=== PATIENT | male | born 1985 | race Caucasian/White ===

== ENCOUNTER 2016-03-18 23:08 | Emergency (ER) | payer OTHER ==
[~2016-03-18] VITALS: Ht 177.8 cm; Wt 78.7 kg
[~2016-03-18 23:08] MED LIST: CLINDAMYCIN HC300 MG PO; ULTRAM50 MG PO
[2016-03-18 23:12] VITALS: BP 145/93
== END 2016-03-19 00:45 | disposition home or self-care (01) ==
LOC: EME 23:08
DX: T78.40XA Allergy, unspecified, initial encounter (principal)

== ENCOUNTER 2016-12-01 06:13 | Emergency (ER) | payer OTHER ==
[~2016-12-01] VITALS: Ht 177.8 cm; Wt 79.7 kg
[2016-12-01 09:27] VITALS: BP 162/95
== END 2016-12-01 09:24 | disposition home or self-care (01) ==
LOC: EME 06:13
DX: G43.909 Migraine, unspecified, not intractable, without status migrainosus (principal); Z88.0 Allergy status to penicillin; Z88.8 Allergy status to other drugs, medicaments and biological substances; F17.200 Nicotine dependence, unspecified, uncomplicated
CPT/HCPCS: 99281; 99284; J7120

== ENCOUNTER 2017-05-03 21:40 | Inpatient (IN) | payer OTHER ==
[~2017-05-03] VITALS: Ht 177.8 cm; Wt 77.6 kg
[2017-05-03 23:10] LABS: BASOPHIL (%) 0.3 % (0-1); BASOPHIL COUNT 0.1 K/uL (0-0.1); EOSINOPHIL (%) 0 % (0-5); HEMATOCRIT 39.4 % (38.0-50.0); HEMOGLOBIN 13.9 G/DL (12.5-16.6); IMMATURE GRANULOCYTE (%) 1.9 % (0.0-0.7); LYMPHOCYTE (%) 4.3 % (15-42); LYMPHOCYTE COUNT 1.1 K/uL (1.0-2.8); MCH 30.3 PG (29.0-34.0); MCHC 35.3 G/DL (30.0-36.0); MONOCYTE COUNT 1.6 K/uL (0-0.8); NEUTROPHIL (%) 87.5 % (45-76); NEUTROPHIL COUNT 22.7 K/uL (1.8-6.4); PLATELET COUNT 212 K/uL (156-360); RBC DIS.WIDTH-CV 13.1 % (11.8-14.6); RBC DIS.WIDTH-SD 40.7 % (39-53); RED BLOOD COUNT 4.58 M/uL (4.00-5.50)
[2017-05-03 23:21] LABS: ALBUMIN 4.6 g/dL (3.2-4.8); CHLORIDE 93 mEq/L (99-109); POTASSIUM 3.5 mEq/L (3.7-5.4); SODIUM 132 mEq/L (136-147)
[2017-05-03 23:23] LABS: GLUCOSE 112 mg/dL (70-99); TOTAL PROTEIN 8.4 g/dL (6.4-8.3)
[2017-05-03 23:27] LABS: ALKALINE PHOSPHATASE 64 IU/L (3-129); CREATININE 1.2 mg/dL (0.6-1.3); GFR ESTIMATE (CALCULATED) > 59 mL/min/ (58.99-99999)
[2017-05-03 23:28] LABS: UREA NITROGEN (BUN) 19 mg/dL (9-23)
[2017-05-03 23:29] LABS: AST (GOT) 53 IU/L (2-34)
[2017-05-03 23:30] LABS: ALT (GPT) 37 IU/L (3-49)
[2017-05-04 05:45] LABS: AMPHETAMINE NEGATIVE (500 ng/mL); BARBITURATES NEGATIVE (200 ng/mL); BENZODIAZEPINES NEGATIVE (150 ng/mL); BUPRENORPHINE PRESUMPTIVE POSITIVE (10 ng/mL); COCAINE PRESUMPTIVE POSITIVE (150 ng/mL); METHADONE NEGATIVE (200 ng/mL); METHAMPHETAMINE NEGATIVE (500 ng/mL); OPIATES (MORPHINE) NEGATIVE (100 ng/mL); OXYCODONE NEGATIVE (100 ng/mL); PHENCYCLIDINE NEGATIVE (25 ng/mL); PROPOXYPHENE NEGATIVE (300 ng/mL); THC CANNABINOIDS PRESUMPTIVE POSITIVE (50 ng/mL); TRICYCLIC ANTIDEPRESSANTS NEGATIVE (300 ng/mL)
[2017-05-04 06:29] LABS: HEMATOCRIT 35.2 % (38.0-50.0); HEMOGLOBIN 12.4 G/DL (12.5-16.6); MCH 30.5 PG (29.0-34.0); MCHC 35.2 G/DL (30.0-36.0); MCV 86.5 FL (86-99); PLATELET COUNT 187 K/uL (156-360); RBC DIS.WIDTH-CV 13.1 % (11.8-14.6); RBC DIS.WIDTH-SD 41.3 % (39-53); RED BLOOD COUNT 4.07 M/uL (4.00-5.50); WHITE BLOOD COUNT 29.1 K/uL (4.1-10.2)
[2017-05-04 07:05] LABS: ABS NEUTROPHIL COUNT 27.4; ANISOCYTOSIS 1+; BAND NEUTROPHILS 24.6 % (0-8.0); EOSINOPHIL ABS CT 0; LYMPHOCYTES 0.9 % (15.0-45.0); MACROCYTES 1+; METAMYELOCYTES 1.7 %; MICROCYTOSIS 1+; MONOCYTES 3.4 % (0-9.0); POLYCHROMASIA 1+; SEG.NEUTROPHILS 69.4 % (46.0-76.0)
[2017-05-04 07:09] VITALS: BP 112/58
[2017-05-04 09:26] LABS: CREATININE 0.9 MG/DL (0.6-1.3); GFR ESTIMATE (CALCULATED) > 59 mL/min/ (58.99-99999)
[2017-05-04] MEDS ORDERED: SUBOXONE 12 MG1 EACH SL (12:27)
[2017-05-04 14:07] LABS: CK-MB 2.1 ng/mL (0.0-4.9)
[2017-05-04 14:36] LABS: CKMB RELATIVE INDEX 1.2 (0.0-3.9); CREATINE KINASE 180 IU/L (1-294); TOTAL CK 180 IU/L (1-294)
[2017-05-04 17:21] VITALS: BP 94/53
[2017-05-04 19:57] VITALS: BP 122/60
[2017-05-04 23:11] VITALS: BP 116/76
[2017-05-05 07:07] LABS: HEMATOCRIT 32.4 % (38.0-50.0); HEMOGLOBIN 11.4 G/DL (12.5-16.6); MCH 30.2 PG (29.0-34.0); MCHC 35.2 G/DL (30.0-36.0); MCV 85.7 FL (86-99); PLATELET COUNT 152 K/uL (156-360); RBC DIS.WIDTH-CV 13.2 % (11.8-14.6); RBC DIS.WIDTH-SD 41.4 % (39-53); RED BLOOD COUNT 3.78 M/uL (4.00-5.50); WHITE BLOOD COUNT 21.1 K/uL (4.1-10.2)
[2017-05-05 07:32] LABS: CHLORIDE 95 MEQ/L (99-109); CREATININE 0.8 MG/DL (0.6-1.3); GFR ESTIMATE (CALCULATED) > 59 mL/min/ (58.99-99999); GLUCOSE 144 mg/dL (70-99); POTASSIUM 3.8 MEQ/L (3.7-5.4); SODIUM 130 MEQ/L (136-147); UREA NITROGEN (BUN) 10 mg/dL (9-23)
[2017-05-05 07:33] LABS: ALBUMIN 3.4 G/DL (3.2-4.8); ALKALINE PHOSPHATASE 47 IU/L (3-129); ALT (GPT) 21 IU/L (3-49); AST (GOT) 29 IU/L (2-34); CHLORIDE 94 MEQ/L (99-109); CREATININE 0.9 MG/DL (0.6-1.3); GFR ESTIMATE (CALCULATED) > 59 mL/min/ (58.99-99999); GLUCOSE 146 mg/dL (70-99); POTASSIUM 3.8 MEQ/L (3.7-5.4); SODIUM 130 MEQ/L (136-147); TOTAL BILIRUBIN 0.6 MG/DL (0.0-1.0); UREA NITROGEN (BUN) 11 mg/dL (9-23)
[2017-05-05 07:38] VITALS: BP 115/52
[2017-05-05 15:50] VITALS: BP 119/53
[2017-05-05 23:35] VITALS: BP 120/57
[2017-05-06 03:34] VITALS: BP 107/53
[2017-05-06 07:30] VITALS: BP 116/67
[2017-05-06 09:03] LABS: HEMATOCRIT 32.7 % (38.0-50.0); HEMOGLOBIN 11.2 G/DL (12.5-16.6); MCH 29.6 PG (29.0-34.0); MCHC 34.3 G/DL (30.0-36.0); MCV 86.3 FL (86-99); PLATELET COUNT 138 K/uL (156-360); RBC DIS.WIDTH-CV 13.3 % (11.8-14.6); RBC DIS.WIDTH-SD 42.2 % (39-53); RED BLOOD COUNT 3.79 M/uL (4.00-5.50); WHITE BLOOD COUNT 15.6 K/uL (4.1-10.2)
[2017-05-06 09:25] LABS: ALBUMIN 3.1 G/DL (3.2-4.8); ALKALINE PHOSPHATASE 51 IU/L (3-129); ALT (GPT) 17 IU/L (3-49); AST (GOT) 24 IU/L (2-34); CHLORIDE 98 MEQ/L (99-109); CREATININE 0.7 MG/DL (0.6-1.3); GFR ESTIMATE (CALCULATED) > 59 mL/min/ (58.99-99999); GLUCOSE 155 mg/dL (70-99); POTASSIUM 3.4 MEQ/L (3.7-5.4); SODIUM 134 MEQ/L (136-147); TOTAL BILIRUBIN 0.6 MG/DL (0.0-1.0); UREA NITROGEN (BUN) 7 mg/dL (9-23)
[2017-05-06 16:44] VITALS: BP 101/54
[2017-05-06 22:23] LABS: APPEARANCE CLEAR ((CLEAR)); BILIRUBIN NEGATIVE; BLOOD SMALL; COLOR YELLOW ((YELLOW)); GLUCOSE (STRIP) NEGATIVE; KETONES NEGATIVE; LEUKOCYTES NEGATIVE; NITRITE NEGATIVE; PROTEIN (STRIP) 30; UROBILINOGEN 0.2 MG/DL (0.2-1.0)
[2017-05-06 22:25] LABS: BACTERIA NONE SEEN /HPF; EPITHELIAL CELLS RARE /HPF; MUCUS NONE SEEN /LPF; RED BLOOD CELLS 0-5 /HPF (0-5); UCUL ADDED? NO; WHITE BLOOD CELLS 0-5 /HPF (0-5)
[2017-05-07] VITALS: BP 100/53
[2017-05-07 04:03] VITALS: BP 94/51
[2017-05-07 05:41] VITALS: BP 112/56
[2017-05-07 06:21] LABS: HEMATOCRIT 31.7 % (38.0-50.0); HEMOGLOBIN 10.8 G/DL (12.5-16.6); MCH 29.4 PG (29.0-34.0); MCHC 34.1 G/DL (30.0-36.0); MCV 86.4 FL (86-99); PLATELET COUNT 159 K/uL (156-360); RBC DIS.WIDTH-CV 13.6 % (11.8-14.6); RED BLOOD COUNT 3.67 M/uL (4.00-5.50); WHITE BLOOD COUNT 10.7 K/uL (4.1-10.2)
[2017-05-07 06:55] LABS: CHLORIDE 102 MEQ/L (99-109); CREATININE 0.6 MG/DL (0.6-1.3); GFR ESTIMATE (CALCULATED) > 59 mL/min/ (58.99-99999); GLUCOSE 92 mg/dL (70-99); POTASSIUM 3.3 MEQ/L (3.7-5.4); SODIUM 139 MEQ/L (136-147); UREA NITROGEN (BUN) 6 mg/dL (9-23)
[2017-05-07 07:53] VITALS: BP 108/51
[2017-05-07 08:38] LABS: MAGNESIUM 1.9 mg/dl (1.3-2.7); PHOSPHORUS 2.5 mg/dL (2.5-4.9)
[2017-05-07 15:44] VITALS: BP 120/60
[2017-05-07 23:28] VITALS: BP 120/60
[2017-05-08 05:57] LABS: HEMATOCRIT 33.5 % (38.0-50.0); HEMOGLOBIN 11.6 G/DL (12.5-16.6); MCH 30.3 PG (29.0-34.0); MCHC 34.6 G/DL (30.0-36.0); MCV 87.5 FL (86-99); PLATELET COUNT 189 K/uL (156-360); RBC DIS.WIDTH-CV 13.7 % (11.8-14.6); RBC DIS.WIDTH-SD 43.8 % (39-53); RED BLOOD COUNT 3.83 M/uL (4.00-5.50); WHITE BLOOD COUNT 10.2 K/uL (4.1-10.2)
[2017-05-08 06:15] LABS: CHLORIDE 105 MEQ/L (99-109); CREATININE 0.5 MG/DL (0.6-1.3); GFR ESTIMATE (CALCULATED) > 59 mL/min/ (58.99-99999); GLUCOSE 105 mg/dL (70-99); POTASSIUM 3.7 MEQ/L (3.7-5.4); SODIUM 140 MEQ/L (136-147); UREA NITROGEN (BUN) 6 mg/dL (9-23)
[2017-05-08 07:23] VITALS: BP 107/69
[2017-05-08 15:20] VITALS: BP 124/73
[2017-05-08 23:44] VITALS: BP 135/74
[2017-05-09 06:15] LABS: HEMATOCRIT 32.8 % (38.0-50.0); HEMOGLOBIN 11.2 G/DL (12.5-16.6); MCH 30.2 PG (29.0-34.0); MCHC 34.1 G/DL (30.0-36.0); MCV 88.4 FL (86-99); PLATELET COUNT 231 K/uL (156-360); RBC DIS.WIDTH-CV 14.2 % (11.8-14.6); RBC DIS.WIDTH-SD 46.1 % (39-53); RED BLOOD COUNT 3.71 M/uL (4.00-5.50); WHITE BLOOD COUNT 8.2 K/uL (4.1-10.2)
[2017-05-09 06:34] LABS: CHLORIDE 109 MEQ/L (99-109); CREATININE 0.5 MG/DL (0.6-1.3); GFR ESTIMATE (CALCULATED) > 59 mL/min/ (58.99-99999); GLUCOSE 92 mg/dL (70-99); POTASSIUM 3.7 MEQ/L (3.7-5.4); SODIUM 143 MEQ/L (136-147); UREA NITROGEN (BUN) 5 mg/dL (9-23)
[2017-05-09 07:15] LABS: ABS NEUTROPHIL COUNT 4.8; ANISOCYTOSIS 1+; ATYPICAL LYMPHOCYTE 6.2 %; BASOPHILS 0.9 %; EOSINOPHIL ABS CT 0.1; EOSINOPHILS 1.7 % (0-5.0); MACROCYTES 1+; METAMYELOCYTES 0.9 %; MICROCYTOSIS 1+; MONOCYTES 7.1 % (0-9.0); SEG.NEUTROPHILS 56.6 % (46.0-76.0)
[2017-05-09 07:17] LABS: BAND NEUTROPHILS 1.8 % (0-8.0); LYMPHOCYTES 24.8 % (15.0-45.0)
[2017-05-09 07:34] VITALS: BP 119/69
[2017-05-09 16:40] VITALS: BP 110/74
[2017-05-09 23:32] VITALS: BP 133/73
[2017-05-10 06:11] LABS: HEMATOCRIT 32.9 % (38.0-50.0); HEMOGLOBIN 10.9 G/DL (12.5-16.6); MCH 29.3 PG (29.0-34.0); MCHC 33.1 G/DL (30.0-36.0); MCV 88.4 FL (86-99); PLATELET COUNT 267 K/uL (156-360); RBC DIS.WIDTH-CV 14.3 % (11.8-14.6); RED BLOOD COUNT 3.72 M/uL (4.00-5.50); WHITE BLOOD COUNT 8.1 K/uL (4.1-10.2)
[2017-05-10 06:34] LABS: CHLORIDE 107 MEQ/L (99-109); CREATININE 0.5 MG/DL (0.6-1.3); GFR ESTIMATE (CALCULATED) > 59 mL/min/ (58.99-99999); GLUCOSE 86 mg/dL (70-99); POTASSIUM 3.8 MEQ/L (3.7-5.4); SODIUM 142 MEQ/L (136-147); UREA NITROGEN (BUN) 4 mg/dL (9-23)
[2017-05-10 06:48] LABS: ABS NEUTROPHIL COUNT 5.1; BAND NEUTROPHILS 0.9 % (0-8.0); BASOPHILS 0.9 %; EOSINOPHIL ABS CT 0.1; LYMPHOCYTES 27.1 % (15.0-45.0); MONOCYTES 6.6 % (0-9.0); MYELOCYTES 0.9 %; PLAT.SUFFICIENCY ADEQUATE; SEG.NEUTROPHILS 62.6 % (46.0-76.0)
[2017-05-10 09:43] VITALS: BP 117/69
[2017-05-10] MEDS ORDERED: KEFLEX500 MG PO (10:36)
[2017-05-10] MEDS ORDERED: BACTRIM,SEPT1 TABLET PO (10:36)
[2017-05-10] MEDS ORDERED: IBUPROFEN400 MG PO (10:37)
[2017-05-10] MEDS ORDERED: SUBOXONE 2 MG-1 EACH SL (14:44)
== END 2017-05-10 14:48 | disposition home or self-care (01) | DRG 872 ==
LOC: EME 21:40 → EDOF 05-04 03:46 → 5EAST 05-04 03:46 → ENRESERV 05-04 03:53 → 5EAST 05-04 05:27 → ENPENDDIS 05-10 → 5EAST 05-10 14:48
PROVIDERS: Hospitalist; Internal Medicine; Physician Assistant Medical
DX: A41.9 Sepsis, unspecified organism (principal); L03.114 Cellulitis of left upper limb; F11.20 Opioid dependence, uncomplicated; R65.20 Severe sepsis without septic shock; B18.2 Chronic viral hepatitis C; E87.1 Hypo-osmolality and hyponatremia; E87.6 Hypokalemia; Y04.1XXA Assault by human bite, initial encounter; Y04.0XXA Assault by unarmed brawl or fight, initial encounter; Z82.0 Family history of epilepsy and other diseases of the nervous system; F17.210 Nicotine dependence, cigarettes, uncomplicated; Z88.0 Allergy status to penicillin; Z86.19 Personal history of other infectious and parasitic diseases
CPT/HCPCS: 71045; 73130; 73201; 80048; 80053; 80202; 81003; 82550; 82550 91; 82553; 82565; 83605; 83735; 84100; 84999; 85025; 85027; 87040; 93971; 99281; 99285; J0572; J0574; J0692; J0696; J1650; J3370; J7030; S0030